=== PATIENT | female | born 1975 | race Caucasian/White ===

== ENCOUNTER → 2016-08-17 | Outpatient (CLI) | payer BC ==
[~2016-08-17] MED LIST: LEVO112T2 PO
--- NOTE | 2016-08-18 17:16 | EKG ---
Date Performed: 08/17/2016 Time Performed: 13:06:34 PTAGE: 41 years EKG: Sinus rhythm NORMAL ECG NO PREVIOUS TRACING DOCTOR: Clarissa Nazario Interpretating Date/Time 08/18/2016 17:10:13
== END ==
LOC: CPRE 12:44
PROVIDERS: ATTEND Obstetrics & Gynecology
DX: Z01.810 Encounter for preprocedural cardiovascular examination (principal); N94.6 Dysmenorrhea, unspecified; R10.2 Pelvic and perineal pain
CPT/HCPCS: 93005

== ENCOUNTER 2016-08-19 12:02 | Observation (INO) | payer BC ==
--- NOTE | 2016-08-18 09:26 | MH ---
cc: ULICES YOUNG DATE OF ADMISSION 08/19/2016 DATE OF 1975 ADMITTING DIAGNOSIS Menorrhagia, dysmenorrhea. HISTORY OF PRESENT ILLNESS The patient is a 41-year-old white female para 4-0-1-3 who returned for A visit on 07/14/2016 reporting increasing menstrual flow and menstrual pain over the last two years. Her Pap smear was normal. Her laboratory studies were normal. Her ultrasound shows some uterine enlargement. The ovaries were normal. Endometrial biopsy from 07/30/2016 was negative. She is now admitted for hysterectomy. PAST MEDICAL HISTORY Previous surgery: 1. x4, the last 03/10/2006 with a tubal 2. Umbilical hernia repair 2003 3. Appendectomy 1989 4. Breast augmentation 1994. Serious Medical Illness: She had hyperthyroid treated by I-131 in 1983 and takes thyroid replacement medication Synthroid 1.11 2012 mcg daily. ALLERGIES None TRANSFUSIONS None SOCIAL HISTORY She is , a homemaker. Alcohol, tobacco and drugs are none. FAMILY HISTORY Her family history is noncontributory. PHYSICAL EXAM This is a well-nourished, well-developed white female. VITAL SIGNS: Stable. HEENT: Exam is normal. CHEST: Clear. HEART: Regular rate. BREASTS: Symmetrical. ABDOMEN: Benign. PELVIC: Normal external genitalia and BUS. Vagina is normal. Cervix normal. The uterus is about 12 weeks' size. Adnexa nonpalpable. ASSESSMENT As above. PLAN She is now admitted for a laparoscopy, planned LASH procedure, possible CHAPIN[place]O with ovarian sparing if normal. While in the office, I explained the procedures, the risks, benefits and complications and patient would like to proceed. MD DELORES Silva/DAMASO /9:12 AM /9:23 AM
[~2016-08-19] VITALS: Ht 149.9 cm; Wt 63.5 kg
[~2016-08-19 12:02] MED LIST changes: +BUPIVACAINE LIPOSOME PF 1.3% 20 ML VIAL ONE; +KETOROLAC TROMETHAMINE 60 MG/2 ML (IM) VIAL IM ONE; +LACTATED RINGER'S 1000 ML INJ 2,000 ML IV ONE; +ONDANSETRON HCL 4 MG/2 ML VIAL IV PUSH ONE; +PROPOFOL 200 MG/20 ML AMP IV ONE
[2016-08-19] MEDS ORDERED: ceFAZolin 2 GM PREMIX 50 ML IV SCH (13:00)
[2016-08-19] MEDS ORDERED: ACETAMINOPHEN 1000 MG/100 ML VIAL IV ONE ×2 (13:00→14:24)
[2016-08-19 13:04] VITALS: BP 113/66; PULSE 64; RESP 16; TEMP 98; O2SAT 97
[2016-08-19] MEDS ORDERED: INSULIN HUMAN REGULAR 1,000 UNITS/10 ML VIAL SQ PRN (13:15)
[2016-08-19] MEDS ORDERED: CHLORHEXIDINE GLUCONATE 2 % 1 PACK (2 CLOTHS) TOPICAL PRN (13:15)
[2016-08-19] MEDS ORDERED: SODIUM CHLORID 0.9% 500 ML IV PRN (13:15)
[2016-08-19] MEDS ORDERED: POVIDONE IODINE 5% (ANTISEPSIS KIT) 4 APPLICATIONS EACH NARE PRN (13:15)
[2016-08-19] MEDS ORDERED: METOPROLOL TARTRATE 25 MG TAB PO PRN (13:15)
[2016-08-19] MEDS ORDERED: LACTATED RINGER'S 1000 ML IV PRN (13:15)
[2016-08-19] MEDS ORDERED: HYDROmorphone HCL PF 2 MG/ML VIAL ONE (14:24)
[2016-08-19] MEDS ORDERED: FAMOTIDINE 20 MG/2 ML VIAL ONE (14:28)
[2016-08-19] MEDS ORDERED: SUGAMMADEX SODIUM 200 MG/2 ML VIAL IV PUSH ONE ×2 (15:27)
--- NOTE | 2016-08-19 16:23 | PD.CONS ---
[facility] Service Urology Consult Requested By Reason for Consult Bladder perforation Primary Care Physician No Primary Care Physician Diagnosis: History of Present Illness Consulted intraoperatively for recommendations regarding a small bladder perforation discovered at the time of the patient's supracervical hysterectomy. There was a small perforation measuring approximately 1-1-1/2 cm involving the bladder dome. The small defect was closed laparoscopically by Dr. Lipscomb utilizing statofix suture material. The bladder was filled with approximately 250 cc normal saline after the repair was made and there was no evidence of extravasation. Review of Systems ROS Limitations: Other (under general anesthesia) Past Family Social History Past Medical History Refer to EMR Past Surgical History Refer to EMR Allergies: Coded Allergies: No Known Allergies (Unverified , 08/19/16) Active Ordered Medications Refer to EMR Family History Refer to EMR Social History Refer to EMR Physical Exam Vital Signs Date Time Temp Pulse Resp B/P Pulse Ox O2 Delivery O2 Flow Rate FiO2 08/19/16 13:04 98.0 64 16 113/66 97 Physical Exam Laparoscopic evaluation: Approximately 1-1-1/2 cm perforation involving the bladder dome. Laboratory Tests Test 08/19/16 13:10 Blood Type A NEGATIVE Antibody Screen NEGATIVE Blood Bank Comment Assessment and Plan Assessment and Plan Urologic impression: Small bladder dome perforation created during a supracervical hysterectomy on a 41 female with history of multiple sections successfully closed laparoscopically by . Recommendation: Reis catheter to gravity drainage for a minimum of 7 days. Sonny Montero MD Aug 19, 2016 16:23
[2016-08-19] MEDS ORDERED: PROMETHAZINE HCL 25 MG TAB PO PRN (16:30)
[2016-08-19] MEDS ORDERED: ONDANSETRON ODT 4 MG TAB PO PRN (16:30)
[2016-08-19] MEDS ORDERED: ZOLPIDEM TARTRATE 5 MG TAB PO PRN (16:30)
[2016-08-19] MEDS ORDERED: METHYLENE BLUE 100 MG/10 ML VIAL ONE (16:30)
[2016-08-19] MEDS ORDERED: SODIUM CHLORIDE 0.9% FLUSH 5 ML FLUSH FLUSH PRN (16:30)
[2016-08-19] MEDS ORDERED: HYDROmorphone HCL PF 1 MG/ML VIAL IV PRN (16:30)
[2016-08-19] MEDS ORDERED: hydrOXYzine PAMOATE 25 MG CAP PO PRN (16:30)
[2016-08-19] MEDS ORDERED: ONDANSETRON HCL 4 MG/2 ML VIAL IV PRN (16:30)
[2016-08-19] MEDS ORDERED: diphenhydrAMINE HCL 25 MG CAP PO PRN (16:30)
[2016-08-19] MEDS: KETOROLAC TROMETHAMINE 30 MG/ML (IVP) VIAL IVP SCH ×2 (16:30→22:23)
[2016-08-19] MEDS ORDERED: ONDANSETRON INJ 8 MG in DEXTROSE 5% IN WATER INJ 50 ML IV PRN ×2 (17:00)
[2016-08-19] MEDS: DOCUSATE SODIUM 100 MG CAP PO SCH (17:00)
[2016-08-19] MEDS ORDERED: fentaNYL CITRATE 250 MCG/5 ML AMP ONE (17:03)
[2016-08-19] MEDS ORDERED: MIDAZOLAM HCL 2 MG/2 ML VIAL ONE (17:03)
[2016-08-19] MEDS: D5-1/2 NS + KCL 20 MEQ INJ 1,000 ML IV SCH (17:15)
[2016-08-19 19:15] VITALS: BP 117/57; PULSE 80; RESP 16; TEMP 96.5; O2SAT 99
[2016-08-19 19:59] LABS: HEMATOCRIT 37.6 % (35.0-46.0); REVIEW FLAG FINAL
[2016-08-19] MEDS: ACETAMINOPHEN 1000 MG/100 ML VIAL IV SCH (20:56)
[2016-08-19] MEDS: SODIUM CHLORIDE 0.9% FLUSH 5 ML FLUSH FLUSH SCH (20:58)
[2016-08-20] VITALS: BP 99/63; PULSE 74; RESP 16; TEMP 97; O2SAT 99
[2016-08-20] MEDS: D5-1/2 NS + KCL 20 MEQ INJ 1,000 ML IV SCH (01:00)
[2016-08-20 04:00] VITALS: BP 119/71; PULSE 75; RESP 16; TEMP 98.2; O2SAT 100
[2016-08-20] MEDS: KETOROLAC TROMETHAMINE 30 MG/ML (IVP) VIAL IVP SCH ×2 (04:27→09:47)
[2016-08-20] MEDS: ACETAMINOPHEN 1000 MG/100 ML VIAL IV SCH (04:27)
[2016-08-20] MEDS: DOCUSATE SODIUM 100 MG CAP PO SCH (04:27)
[2016-08-20 07:48] LABS: AUTOMATED NEUTROPHIL # 14.9 TH/MM3 (1.8-7.7); BASOPHIL % 0.2 % (0.0-2.0); HEMO FLAGS DIFF FINAL; LYMPH % 6.1 % (9.0-44.0); MEAN CELL VOLUME 93.2 FL (80.0-100.0); MEAN CORPUSCULAR HEMOGLOBIN 31.4 PG (27.0-34.0); MEAN CORPUSCULAR HGB CONC 33.7 % (32.0-36.0); MONO % 4.3 % (0.0-8.0); NEUT % 89.4 % (16.0-70.0); PLATELET COUNT 244 TH/MM3 (150-450); RED BLOOD COUNT 4.08 MIL/MM3 (4.00-5.30); RED CELL DISTRIBUTION WIDTH 12.6 % (11.6-17.2); WHITE BLOOD COUNT 16.6 TH/MM3 (4.0-11.0)
[2016-08-20 08:00] VITALS: BP 104/65; PULSE 67; RESP 20; TEMP 96.4; O2SAT 98
[2016-08-20 08:20] VITALS: O2SAT 92
[2016-08-20 08:28] LABS: BICARBONATE 22.4 MEQ/L (21.0-32.0); POTASSIUM 4.2 MEQ/L (3.5-5.1)
[2016-08-20] MEDS: SODIUM CHLORIDE 0.9% FLUSH 5 ML FLUSH FLUSH SCH (09:00)
[2016-08-20 12:28] VITALS: BP 102/56; PULSE 71; RESP 20; TEMP 96.7; O2SAT 99
[2016-08-20 16:00] VITALS: BP 94/52; PULSE 94; RESP 18; TEMP 97.9; O2SAT 97
--- NOTE | 2016-08-20 16:30 | MP ---
cc: SONNY MONTERO MD, JOHN DATE OF SURGERY: . PREOPERATIVE DIAGNOSIS: Menorrhagia, dysmenorrhea. POSTOPERATIVE DIAGNOSIS: Menorrhagia, dysmenorrhea. OPERATIVE PROCEDURE PERFORMED: Laparoscopy, LASH, bilateral salpingectomy and repair of the bladder opening. ANESTHESIA: General endotracheal anesthesia. SURGEON: Chad Lipscomb MD COMMERCIAL LOAN CLOSER: KENAN Green. INTRAOPERATIVE EQUINE VET: Sonny Montero M.D. ESTIMATED BLOOD LOSS: About 200 cc. FLUIDS: Two liters of crystalloid. DESCRIPTION OF THE PROCEDURE IN DETAIL / OBJECTIVE FINDINGS: Following the induction of adequate general endotracheal anesthesia, the patient was prepped and draped supine on the operating table in the dorsal lithotomy position in the usual sterile fashion with the bladder being drained via Reis catheterization. The abdomen was opened through a 3-cm curving supraumbilical incision using a knife to cut down through skin to the fascia. Fascia was opened transversely and stripped from the muscles, the rectus muscle in the midline and peritoneum opened sharply without incident. The mini GelPort was placed. The laparoscope was inserted and a #5 port placed in the left lower quadrant and a aerosol port right lower quadrant. The uterus was about 12 weeks size globular, enlarged with normal ovaries. The tubes showed previous interruption with the fimbria being absent from previous tubal. The cul-de-sacs were clear. There were some expected adhesions with the bladder and the lower uterine segment. The appendix was absent. Liver edge was normal. Working first on the left, the harmonic scalpel was used take the left mesosalpinx, left round ligament, left broad ligament, left-sided bladder flap and uterine vessels with the same on the right. The harmonic scalpel was now used to amputate the fundus from the cervix and this was then extracted in a bag intact. Irrigation was performed. No bleeding was evident. On close inspection, there was a 1 cm rent in the dome of the bladder that had occurred with the bladder adhesions from the lower segment. Dr. Montero was consulted and came to the OR to observe the repair which was done in two layers with a 2-0 Vicryl quill stitch. When completed, the bladder was filled with saline with no leakage. Dr. Montero felt cystoscopy was not needed to the location of the rent and inspection the ureters revealed good peristalsis. The operative sites were coated Evicel and the GelPort removed and the closure of this wound with a 2-0 Vicryl running suture in the peritoneum, a running locking stitch of 0 Vicryl corner to midline for the fascia, 3-0 Vicryl running for the subcu and 3-0 Monocryl subcuticular. The scope was now reinserted through lower port sites to inspect the GelPort site, which was closed well with no entrapment. Pelvis was inspected and there was no bleeding. The scope was removed, gas allowed to escape. The small ports were closed with 3-0 Monocryl. Dermabond applied. All counts were correct and the patient was awake and taken to the recovery room in good condition. MD DELORES Silva/LISA /4:39 PM /4:20 PM [place]
== END 2016-08-20 16:49 | disposition home or self-care (01) ==
LOC: HSDC 12:02 → HSDI 16:32 → HOCB 19:03
PROVIDERS: ADMIT Obstetrics & Gynecology; ATTEND Obstetrics & Gynecology
DX: N80.0 Endometriosis of uterus (principal); N99.71 Accidental puncture and laceration of a genitourinary system organ or structure during a genitourinary system procedure; N92.0 Excessive and frequent menstruation with regular cycle; N70.11 Chronic salpingitis; N73.6 Female pelvic peritoneal adhesions (postinfective); E03.9 Hypothyroidism, unspecified; Z98.51 Tubal ligation status; Y83.8 Other surgical procedures as the cause of abnormal reaction of the patient, or of later complication, without mention of misadventure at the time of the procedure; Y92.234 Operating room of hospital as the place of occurrence of the external cause
CPT/HCPCS: 51999; 58542; 80048; 85014; 85018; 85025; 86850; 86900; 86901; 88307; 93005; 94150; C9290; G0378; J0131; J0690; J1170; J1885; J2250; J2405; J3010; J3480; J7120